=== PATIENT | male | born 1970 | race Caucasian/White ===

== ENCOUNTER → 2021-11-14 | Outpatient (CLI) | payer OTHER ==
[~2021-11-14] MED LIST: BACTRIM DS TAB1 EACH PO; CEPHALEXIN500 MG PO
[2021-11-14 13:52] LABS: HEMOGLOBIN 15.5 gm/dl (14.0-17.5); RED BLOOD COUNT 5.34 M/UL (4.20-5.50); WHITE BLOOD COUNT 6.2 K/UL (4.5-11.0)
[2021-11-14 14:20] LABS: BUN/CREATININE RATIO 18 (0-10)
== END ==
LOC: EDSTATUS 12:30 → OPSV2 12:30
PROVIDERS: Orthopaedic Surgery
DX: Z01.818 Encounter for other preprocedural examination (principal); M54.12 Radiculopathy, cervical region
CPT/HCPCS: 71046; 80048; 81001; 85027; 87081; 93005

== ENCOUNTER → 2021-11-22 | Outpatient (CLI) | payer OTHER ==
[~2021-11-22] MED LIST changes: +TUMS200 MG PO
== END ==
LOC: KOH-I 08:00
DX: M47.22 Other spondylosis with radiculopathy, cervical region (principal); M50.121 Cervical disc disorder at C4-C5 level with radiculopathy; M25.78 Osteophyte, vertebrae; M48.02 Spinal stenosis, cervical region
CPT/HCPCS: 72125

== ENCOUNTER → 2021-11-26 | Outpatient (CLI) | payer OTHER ==
[2021-11-26 18:12] LABS: BUN/CREATININE RATIO 14 (0-10)
== END ==
LOC: LAB 16:50
PROVIDERS: Orthopaedic Surgery
DX: Z01.812 Encounter for preprocedural laboratory examination (principal)
CPT/HCPCS: 80048; 86850; 86900; 86901

== ENCOUNTER 2021-11-27 05:42 | Day surgery (SDC) | payer OTHER ==
[~2021-11-27] VITALS: Ht 180.3 cm; Wt 105.2 kg
[~2021-11-27 05:42] MED LIST changes: -TUMS200 MG PO
[2021-11-27 12:55] LABS: HEMOGLOBIN 15.1 gm/dl (14.0-17.5); RED BLOOD COUNT 5.26 M/UL (4.20-5.50); WHITE BLOOD COUNT 7.2 K/UL (4.5-11.0)
[2021-11-27 13:16] LABS: BUN/CREATININE RATIO 13 (0-10)
[2021-11-27] MEDS ORDERED: TUMS200 MG PO (14:58)
[2021-11-28 05:24] LABS: HEMOGLOBIN 15.2 gm/dl (14.0-17.5); RED BLOOD COUNT 5.28 M/UL (4.20-5.50)
[2021-11-28 05:28] LABS: WHITE BLOOD COUNT 13.3 K/UL (4.5-11.0)
[2021-11-28 14:22] LABS: BUN/CREATININE RATIO 17 (0-10)
== END 2021-11-28 14:32 | disposition home or self-care (01) ==
LOC: OR 05:42 → CCU 05:42 → OR 07:30 → CCU 13:35 → OR 11-28 14:32
PROVIDERS: Orthopaedic Surgery
DX: M54.12 Radiculopathy, cervical region (principal); J45.909 Unspecified asthma, uncomplicated; K21.9 Gastro-esophageal reflux disease without esophagitis; Z88.8 Allergy status to other drugs, medicaments and biological substances
CPT/HCPCS: 72040; 76000; 80048; 85025; 85027; C1713; C1762; J0690; J1040; J1100; J1170; J1885; J2001; J2250; J2405; J2704; J3010; J3370; J7040